=== PATIENT | male | born 1970 | race Caucasian/White ===

== ENCOUNTER 2021-01-07 12:45 | Inpatient (IN) | payer MEDICAID ==
[~2021-01-07] VITALS: Ht 167.6 cm; Wt 78.0 kg
[~2021-01-07 12:45] MED LIST: KEPP500 MT
[2021-01-07] MEDS ORDERED: SODIUM CHLORIDE 0.9% 1,000 ML IV ONE ×2 (13:15→18:30)
[2021-01-07] MEDS ORDERED: TETANUS, DIPHTHERIA, PERTUSSIS VAC/PF 0.5ML (>7YR OLD) IM ONE (13:15)
[2021-01-07 13:29] LABS: HEMATOCRIT. 32.9 % (42.0-52.0); HEMOGLOBIN. 11.5 g/dL (14.0-18.0); MEAN CORPUSCULAR HEMOGLOBIN 32.5 pg (28.0-32.0); MEAN CORPUSCULAR VOLUME 93.1 fL (80.0-94.0); PLATELET 86 x1000/uL (130-400); RED BLOOD CELL COUNT 3.53 mill/uL (4.7-6.1); RED CELL DISTRIBUTION WIDTH 15.2 % (11.6-14.6)
[2021-01-07 13:33] LABS: CHLORIDE 95 mEq/L (98-107)
[2021-01-07 14:04] LABS: PLATELET ESTIMATE DECREASED
[2021-01-07 18:48] LABS: CLARITY URINE CLEAR (CLEAR); COLOR URINE YELLOW (YELLOW); KETONES URINE NEGATIVE (NEGATIVE); LEUKOCYTE ESTERASE URINE NEGATIVE (NEGATIVE); NITRITE URINE NEGATIVE (NEGATIVE); OCCULT BLOOD URINE 1+ (NEGATIVE); PROTEIN URINE NEGATIVE (NEGATIVE); SPECIFIC GRAVITY URINE 1.005 (1.005-1.030)
[2021-01-07 18:56] LABS: *AMPHETAMINES SCREEN URINE NEGATIVE (NEGATIVE); *BARBITURATES SCREEN URINE NEGATIVE (NEGATIVE); *BENZODIAZEPINES SCREEN URINE NEGATIVE (NEGATIVE); *COCAINE SCREEN URINE NEGATIVE (NEGATIVE); METHADONE URINE SCREEN NEGATIVE (NEGATIVE)
[2021-01-07 18:57] LABS: CANNABINOID URINE SCREEN NEGATIVE (NEGATIVE); OPIATES URINE SCREEN NEGATIVE (NEGATIVE); PHENCYCLIDINE URINE SCREEN NEGATIVE (NEGATIVE)
[2021-01-07 19:43] LABS: BASOPHILS % 0.6 % (0.0-2.0); EOSINOPHILS % 1.1 % (0.0-5.0); HEMATOCRIT. 35.2 % (42.0-52.0); HEMOGLOBIN. 12.2 g/dL (14.0-18.0); LYMPHOCYTES % 24.3 % (20.0-50.0); MEAN CORPUSCULAR HEMOGLOBIN 32.1 pg (28.0-32.0); MEAN CORPUSCULAR VOLUME 92.6 fL (80.0-94.0); MEAN PLATELET VOLUME 8.1 fl (7.4-10.4); PLATELET 86 x1000/uL (130-400); RED CELL DISTRIBUTION WIDTH 15.3 % (11.6-14.6)
[2021-01-07 19:50] LABS: CHLORIDE 102 mEq/L (98-107)
[2021-01-07 19:52] LABS: INR 1.1; PROTHROMBIN TIME 11.4 sec (9.6-11.0)
[2021-01-07 19:55] LABS: ETHANOL BLOOD 252 mg/dL
[2021-01-07 21:00] VITALS: BP 132/81
[2021-01-07] MEDS ORDERED: LISI2.5T47 MT (21:21)
[2021-01-07 21:30] VITALS: BP 132/81
[2021-01-08] VITALS: BP 129/82
[2021-01-08] MEDS ORDERED: CLONIDINE 0.1MG TABLET PO PRN (00:45)
[2021-01-08] MEDS ORDERED: ONDANSETRON HCL 4MG/2ML INJ IV PRN (00:45)
[2021-01-08] MEDS ORDERED: FOLIC ACID 1 MG, THIAMINE HCL 100 MG, MVI, ADULT NO.1 10 ML in DEXTROSE 5% WATER 1,000 ML IV SCH (02:00)
[2021-01-08 04:00] VITALS: BP 144/84
[2021-01-08] MEDS: LORAZEPAM 2MG/ML CPJ IV PRN ×3 (04:51→15:18)
[2021-01-08 08:00] VITALS: BP 170/81
[2021-01-08] MEDS ORDERED: THIAMINE HCL 100MG TABLET PO SCH (09:00)
[2021-01-08] MEDS ORDERED: FOLIC ACID 1MG TABLET PO SCH (09:00)
[2021-01-08] MEDS: LEVETIRACETAM 500MG TABLET PO SCH (10:23)
[2021-01-08 12:00] VITALS: BP 136/80
[2021-01-08] MEDS: AMLODIPINE 5MG TABLET PO SCH (14:00)
[2021-01-08] MEDS: CHLORDIAZEPOXIDE 25MG CAPSULE PO SCH ×2 (14:01→20:53)
[2021-01-08] MEDS ORDERED: GADOTERATE MEGLUMINE 5 MMOL/10 ML VIAL IV ONE (15:47)
[2021-01-08 16:00] VITALS: BP 137/86
[2021-01-08 18:34] LABS: FOLIC ACID (FOLATE) SERUM > 20.00 ng/mL (>5.38); VITAMIN B12 SERUM 975 pg/mL (211-911)
[2021-01-08 20:00] VITALS: BP 142/82
[2021-01-08 20:25] LABS: FERRITIN 562 ng/mL (22-322)
[2021-01-08] MEDS ORDERED: LEVETIRACETAM 500MG TABLET PO SCH (21:00)
[2021-01-09] VITALS (7 sets, daily range): BP systolic 112–159; BP diastolic 55–89
[2021-01-09] MEDS: CHLORDIAZEPOXIDE 25MG CAPSULE PO SCH ×2 (05:21→14:10)
[2021-01-09] MEDS: AMLODIPINE 5MG TABLET PO SCH (08:49)
[2021-01-09] MEDS: LEVETIRACETAM 500MG TABLET PO SCH (08:49)
[2021-01-09] MEDS ORDERED: THIAMINE HCL 100MG TABLET PO SCH (09:00)
[2021-01-09] MEDS ORDERED: MULTIVITAMINS,THER W-MINERALS TABLET PO SCH (09:00)
[2021-01-09] MEDS ORDERED: FOLIC ACID 1MG TABLET PO SCH (09:00)
[2021-01-09] MEDS ORDERED: MULT-379 MT (12:35)
[2021-01-09] MEDS ORDERED: FOLI-43 MT (12:35)
[2021-01-09] MEDS ORDERED: THIA100T88 MT (12:35)
[2021-01-09] MEDS ORDERED: CHLO25CA10 MT (12:35)
[2021-01-09] MEDS ORDERED: AMLO5TAB88 PO (12:35)
== END 2021-01-09 17:15 | disposition home or self-care (01) | DRG 55 ==
LOC: ER 12:45 → 5WST 18:20 → EDBEDREQSVC 18:22 → EDBEDREQ 18:22 → EDBEDREQTM 18:22 → ENRESERV 19:26 → 5WST 21:33
PROVIDERS: ADMIT Internal Medicine; ATTEND Internal Medicine
DX: S06.5X0A Traumatic subdural hemorrhage without loss of consciousness, initial encounter (principal); G92 Toxic encephalopathy; D69.6 Thrombocytopenia, unspecified; G93.89 Other specified disorders of brain; R16.0 Hepatomegaly, not elsewhere classified; D64.9 Anemia, unspecified; K76.0 Fatty (change of) liver, not elsewhere classified; G40.909 Epilepsy, unspecified, not intractable, without status epilepticus; W18.39XA Other fall on same level, initial encounter; F10.10 Alcohol abuse, uncomplicated; Y90.9 Presence of alcohol in blood, level not specified; Y93.89 Activity, other specified; Z86.73 Personal history of transient ischemic attack (TIA), and cerebral infarction without residual deficits; Y92.89 Other specified places as the place of occurrence of the external cause; Y99.8 Other external cause status
CPT/HCPCS: 36415; 70544; 70549; 70553; 76700; 80048; 80053; 80076; 80305; 80320; 81003; 82550; 82607; 82728; 82746; 83036; 83540; 83550; 84443; 85025; 90715; 93306; 97162; 97166; 99291; A9577; J2060; J3411; J3490; J7030; J7070; A4315; G0480